=== PATIENT | male | born 1985 | race Caucasian/White ===

== ENCOUNTER 2024-04-16 23:34 | Inpatient (IN) | payer OTHER ==
[~2024-04-16] VITALS: Ht 182.9 cm; Wt 81.8 kg
[2024-04-16 23:51] VITALS: PULSE 82; RESP 18; O2SAT 96
[2024-04-17] MEDS: SODIUM CHLORIDE 0.9% 1,000 ML IV ONE (00:35)
[2024-04-17] MEDS: ACETAMINOPHEN 325 MG TAB PO ONE (00:35)
[2024-04-17] MEDS: chlordiazePOXIDE HCL 25 MG CAP PO ONE (00:36)
[2024-04-17] MEDS: ONDANSETRON HCL 4 MG/2 ML VIAL IV ONE (00:55)
[2024-04-17] MEDS: LORazepam 2MG/ML-1ML VIAL IV ONE (00:56)
[2024-04-17 00:58] LABS: Chloride 100 mmol/L (98-107); Potassium 3.3 mmol/L (3.5-5.1); Sodium 131 mmol/L (136-145)
[2024-04-17 00:59] LABS: Anion Gap 11 (5-15); Carbon Dioxide 20 mmol/L (20-30)
[2024-04-17 01:00] LABS: Calcium 9.3 mg/dL (8.7-10.4)
[2024-04-17 01:05] LABS: Glucose 130 mg/dL (74-106)
[2024-04-17] MEDS: MORPHINE SULFATE 4 MG/ML SYR/VIAL IV ONE (01:10)
[2024-04-17 01:16] LABS: Blood Alcohol < 3.0 mg/dL (<10)
[2024-04-17 01:26] LABS: BUN/Creatinine Ratio 6.7 (10.0-20.0); Blood Urea Nitrogen 6 mg/dL (9-23)
[2024-04-17 02:18] LABS: Basophils # (auto) 0 10 ^3/uL (0-0.2); Eosinophils # (auto) 0 10 ^3/uL (0-0.8); Lymphocytes # (auto) 0.5 10 ^3/uL (0.4-5.4); Monocytes # (auto) 0.7 10 ^3/uL (0-1.3); White Blood Cell 8.7 10^3/uL (4.4-10.8)
[2024-04-17 02:21] LABS: Basophils % (auto) 0.3 % (0.0-2.0); Eosinophils % (auto) 0.1 % (0.0-7.0); Hemoglobin 17.9 g/dL (13.5-17.5); Mean Corpuscular Hemoglobin 35.4 pg (28.0-32.0); Mean Corpuscular Hgb Conc. 35.8 g/dL (32.0-36.0); Mean Corpuscular Volume 98.8 fL (80.0-100.0); Monocytes % (auto) 8.3 % (0.0-12.0); Neutrophils # (auto) 7.4 10 ^3/uL (1.6-8.6); Neutrophils % (auto) 85.3 % (37.0-80.0); Red Blood Cells 5.06 10^6/uL (4.5-5.90); Red Cell Distribution Width 14.5 % (11.8-14.3)
[2024-04-17] MEDS: IOHEXOL 300 MG/ML 100ML BOTTLE IJ ONE (03:18)
[2024-04-17] MEDS: AZITHROMYCIN 250 MG TAB PO ONE (03:52)
[2024-04-17] MEDS: CEFEPIME 2GM/50ML NS 50 ML IV ONE (03:53)
[2024-04-17 04:01] LABS: Platelet Estimate Decreased
[2024-04-17 04:28] LABS: Urine Bacteria None Seen /hpf (None Seen)
[2024-04-17 04:51] LABS: Urine Blood TRACE /uL (Negative); Urine Clarity Clear (Clear); Urine Color Yellow (Yellow); Urine Protein, UAD TRACE (Negative); Urine Specific Gravity 1.018 (1.001-1.035); Urine Urobilinogen Normal (Negative); Urine WBC 1 /hpf (0 - 3); Urine pH 6.5 (5.0-9.0)
[2024-04-17] MEDS ORDERED: ONDANSETRON HCL 4 MG/2 ML VIAL IV PRN (05:15)
[2024-04-17] MEDS ORDERED: NITROGLYCERIN 0.4 MG SL TAB SL PRN (05:15)
[2024-04-17] MEDS ORDERED: DOCUSATE SOD 100 MG CAP PO PRN (05:15)
[2024-04-17] MEDS ORDERED: HYDROcodone-ACET 5/325MG TAB PO PRN (05:15)
[2024-04-17] MEDS ORDERED: ACETAMINOPHEN 325 MG TAB PO PRN (05:15)
[2024-04-17] MEDS ORDERED: MORPHINE SULFATE INJ 2 MG/ml SYRG IV PRN (05:15)
[2024-04-17] MEDS: SODIUM CHLORIDE 0.9% 1,000 ML IV SCH (05:28)
[2024-04-17] MEDS: LORazepam 2MG/ML-1ML VIAL IV PRN (06:14)
[2024-04-17] MEDS: MORPHINE SULFATE INJ 2 MG/ml SYRG IV PRN (06:14)
[2024-04-17 06:19] LABS: Alanine Aminotransferase 22 U/L (7-40); Albumin 3.6 g/dL (3.2-4.8); Alkaline Phosphatase 102 U/L (46-116); Anion Gap 8 (5-15); Aspartate Aminotransferase 52 U/L (13-40); BUN/Creatinine Ratio 5.9 (10.0-20.0); Blood Urea Nitrogen 6 mg/dL (9-23); Calcium 8.8 mg/dL (8.7-10.4); Carbon Dioxide 27 mmol/L (20-30); Chloride 100 mmol/L (98-107); Glucose 90 mg/dL (74-106); Potassium 3.4 mmol/L (3.5-5.1); Sodium 135 mmol/L (136-145)
[2024-04-17 06:20] LABS: Bilirubin, Total 1.2 mg/dL (0.2-1.0); Total Protein 6.1 g/dL (5.7-8.2)
[2024-04-17 07:40] VITALS: BP 153/69; PULSE 20; PULSE 77; RESP 14; TEMP 97.9; O2SAT 96
[2024-04-17] MEDS ORDERED: MULTIPLE VITAMIN TAB PO SCH (10:00)
[2024-04-17] MEDS ORDERED: FOLIC ACID 1 MG in D5W 5% 50 ML INJ SCH (10:00)
[2024-04-17] MEDS ORDERED: THIAMINE 100mg/ml INJ (200mg/2ml VIAL) IV SCH (10:00)
[2024-04-18] MEDS ORDERED: CEFEPIME 1GM/ 50ML 50 ML IV SCH (04:00)
[2024-04-18] MEDS ORDERED: AZITHROMYCIN 500MG/ 250ML 250 ML IV SCH (04:00)
== END 2024-04-17 08:30 | disposition left against medical advice (07) | DRG 101 ==
LOC: EDBD 23:34 → ER 23:34 → TELE 04-17 05:14
PROVIDERS: ADMIT Nurse Practitioner Family; ATTEND Nurse Practitioner Family
DX: G40.909 Epilepsy, unspecified, not intractable, without status epilepticus (principal); S22.059A Unspecified fracture of T5-T6 vertebra, initial encounter for closed fracture; S32.019A Unspecified fracture of first lumbar vertebra, initial encounter for closed fracture; F10.139 Alcohol abuse with withdrawal, unspecified; S27.321A Contusion of lung, unilateral, initial encounter; J98.11 Atelectasis; S00.81XA Abrasion of other part of head, initial encounter; Z53.29 Procedure and treatment not carried out because of patient's decision for other reasons; D69.6 Thrombocytopenia, unspecified; I25.10 Atherosclerotic heart disease of native coronary artery without angina pectoris; Z79.899 Other long term (current) drug therapy; Z95.1 Presence of aortocoronary bypass graft; W18.39XA Other fall on same level, initial encounter; Y93.89 Activity, other specified; Y92.89 Other specified places as the place of occurrence of the external cause; Y99.8 Other external cause status; Y90.0 Blood alcohol level of less than 20 mg/100 ml
CPT/HCPCS: 36415; 70450; 71260; 74177; 80048; 80053; 80320; 81001; 83036; 85025; 96374; 96375; G0378; J0692; J2405; J7060